=== PATIENT | female | born 1985 | race Caucasian/White ===

== ENCOUNTER 2018-06-22 08:46 | Outpatient (CLI) | payer BC ==
[2018-06-22 09:21] LABS: TOTAL HEMOGLOBIN 12.1 G/dl (12.0-16.0)
== END 2018-06-22 23:59 | disposition home or self-care (01) ==
LOC: RT 08:46
PROVIDERS: ATTEND Internal Medicine
DX: R06.02 Shortness of breath (principal); Z87.891 Personal history of nicotine dependence
CPT/HCPCS: 85018; 94010; 94727; 94729